=== PATIENT | male | born 1965 | race Native Hawaiian/Other Pacific Islander ===

== ENCOUNTER 2017-04-16 12:17 | Emergency (ER) | payer OTHER ==
[~2017-04-16] VITALS: Ht 170.2 cm; Wt 107.5 kg
== END 2017-04-16 14:30 | disposition home or self-care (01) ==
LOC: ED 12:17
DX: M79.1 Myalgia (principal)
CPT/HCPCS: 99283

== ENCOUNTER 2017-09-08 15:37 | Outpatient (CLI) | payer OTHER | END 2017-09-08 19:40 | disposition home or self-care (01) | LOC: LABW 15:37 | DX: Z11.59 Encounter for screening for other viral diseases (principal) | CPT/HCPCS: 36415; 80074 ==

== ENCOUNTER 2018-07-08 08:52 | Outpatient (CLI) | payer OTHER ==
[2018-07-08 09:23] LABS: PLATELET COUNT 198 K/uL (142-355)
[2018-07-08 09:42] LABS: POTASSIUM 4.3 mmol/L (3.6-5.2)
== END 2018-07-08 21:49 | disposition home or self-care (01) ==
LOC: LABW 08:52
PROVIDERS: Family Medicine
DX: E78.00 Pure hypercholesterolemia, unspecified (principal); E66.9 Obesity, unspecified; Z83.3 Family history of diabetes mellitus; E55.9 Vitamin D deficiency, unspecified
CPT/HCPCS: 36415; 80053; 80061; 81000; 82306; 83036; 84439; 84443; 85027

== ENCOUNTER 2018-07-14 11:43 | Outpatient (CLI) | payer OTHER | END 2018-07-14 19:31 | disposition home or self-care (01) | LOC: RAD 11:43 | DX: N64.4 Mastodynia (principal) ==

== ENCOUNTER 2018-07-21 08:17 | Outpatient (CLI) | payer OTHER | END 2018-07-21 19:07 | disposition home or self-care (01) | LOC: MAMMO 08:17 | DX: N64.4 Mastodynia (principal) ==